=== PATIENT | female | born 1960 | race Caucasian/White ===

== ENCOUNTER 2016-06-22 21:28 | Emergency (ER) | payer OTHER ==
[2016-06-22 22:59] LABS: BASOPHIL % 0.3 % (0-2); PLATELET COUNT 274 x10^3mcL (130-400)
[2016-06-22 23:03] LABS: RED CELL DISTRIBUTION WIDTH 16.1 % (11.5-14.5)
[2016-06-22 23:13] LABS: CALCIUM 9.4 mg/dL (8.5-10.1); CARBON DIOXIDE 27.5 mmol/L (21-32); CHLORIDE SERUM 105 mmol/L (98-107); CREATININE SERUM 0.9 mg/dL (0.6-1.0); GFR1 > 60 mL/min; GLUCOSE SERUM 91 mg/dL (74-106); POTASSIUM SERUM 4.2 mmol/L (3.5-5.1); SODIUM SERUM 143 mmol/L (136-145)
[2016-06-22 23:17] LABS: ALBUMIN 3.4 g/dL (3.4-5.0); ALKALINE PHOSPHATASE 70 U/L (46-116); ALT/SGPT 20 U/L (14-59); AST/SGOT 14 U/L (15-37); BILIRUBIN TOTAL 0.4 mg/dL (0.20-1.00)
[2016-06-22 23:23] LABS: TOTAL PROTEIN, SERUM 8.4 g/dL (6.4-8.2)
[2016-06-23 01:09] VITALS: BP 124/81
== END 2016-06-23 01:09 | disposition home or self-care (01) ==
LOC: ED 21:28
PROVIDERS: Emergency Medicine
DX: R51 Headache (principal); H53.8 Other visual disturbances; G51.0 Bell's palsy; F20.9 Schizophrenia, unspecified; F99 Mental disorder, not otherwise specified; Z88.0 Allergy status to penicillin; Z79.899 Other long term (current) drug therapy

== ENCOUNTER 2016-08-05 18:45 | Inpatient (IN) | payer OTHER ==
[~2016-08-05] VITALS: Ht 157.5 cm; Wt 97.7 kg
[2016-08-05 20:08] LABS: BASOPHIL % 0.7 % (0-2); PLATELET COUNT 264 x10^3mcL (130-400)
[2016-08-05 20:09] LABS: RED CELL DISTRIBUTION WIDTH 15.9 % (11.5-14.5)
[2016-08-05 20:26] LABS: microscopic required? YES; urine erythrocyte TRACE (NEGATIVE)
[2016-08-05 20:31] LABS: CALCIUM 8.9 mg/dL (8.5-10.1); CARBON DIOXIDE 27.9 mmol/L (21-32); CHLORIDE SERUM 107 mmol/L (98-107); CREATININE SERUM 0.8 mg/dL (0.6-1.0); GFR1 > 60 mL/min; GLUCOSE SERUM 76 mg/dL (74-106); SODIUM SERUM 144 mmol/L (136-145)
[2016-08-05 20:43] LABS: ALKALINE PHOSPHATASE 68 U/L (46-116); ALT/SGPT 20 U/L (14-59); AMYLASE 78 U/L (25-115); AST/SGOT 16 U/L (15-37); BILIRUBIN TOTAL 0.14 mg/dL (0.20-1.00); HDL CHOLESTEROL 55 mg/dL (40-60); LIPASE 253 IU/L (73-393); TOTAL PROTEIN, SERUM 8.1 g/dL (6.4-8.2)
[2016-08-05 20:45] LABS: CHOLESTEROL 201 mg/dL (<200)
[2016-08-05 20:50] LABS: AMPHETAMINE QUAL UR NONE DETECTED (NEG <=1000)
[2016-08-05] MEDS ORDERED: DEPAKOTE500 MG PO (21:08)
[2016-08-05] MEDS ORDERED: ABILIFY5 M1 PO (21:09)
[2016-08-05] MEDS ORDERED: RISPERDAL0.5 MG PO (21:09)
[2016-08-05 22:18] VITALS: BP 121/59
[2016-08-05 22:25] VITALS: Ht 157.5 cm; Wt 97.7 kg
[2016-08-05] MEDS ORDERED: SPIRONOLACTONE50 MG PO (23:02)
[2016-08-05] MEDS ORDERED: FLUOXETINE HYDR20 M2 PO (23:02)
[2016-08-05 23:20] LABS: MAGNESIUM 1.9 mg/dL (1.8-2.4); PHOSPHOROUS 3.4 mg/dL (2.5-4.9)
[2016-08-05 23:25] LABS: CHOLESTEROL/HDL RATIO 3.7
[2016-08-05 23:29] LABS: FREE T4 0.88 ng/dL (0.76-1.46); T4(THYROXINE) 5.8 ug/dL (4.7-13.3)
[2016-08-06 00:21] LABS: T3 TOTAL 1.04 ng/mL
[2016-08-06 04:36] LABS: BASOPHIL % 0.6 % (0-2); PLATELET COUNT 209 x10^3mcL (130-400)
[2016-08-06 04:42] LABS: RED CELL DISTRIBUTION WIDTH 15.9 % (11.5-14.5)
[2016-08-06 04:50] LABS: CALCIUM 8.4 mg/dL (8.5-10.1); CARBON DIOXIDE 25.9 mmol/L (21-32); CHLORIDE SERUM 110 mmol/L (98-107); CREATININE SERUM 0.7 mg/dL (0.6-1.0); GFR1 > 60 mL/min; GLUCOSE SERUM 91 mg/dL (74-106); MAGNESIUM 1.8 mg/dL (1.8-2.4); PHOSPHOROUS 4.1 mg/dL (2.5-4.9); SODIUM SERUM 145 mmol/L (136-145)
[2016-08-06 05:52] VITALS: BP 112/50
[2016-08-06 10:35] VITALS: BP 112/52
[2016-08-06 13:36] VITALS: BP 104/49
[2016-08-06 17:13] VITALS: BP 115/48
[2016-08-06 21:58] VITALS: BP 112/57
[2016-08-07 05:53] VITALS: BP 121/57
[2016-08-07 05:58] LABS: BASOPHIL % 0.3 % (0-2); PLATELET COUNT 207 x10^3mcL (130-400)
[2016-08-07 06:12] LABS: CARBON DIOXIDE 31.1 mmol/L (21-32); CHLORIDE SERUM 110 mmol/L (98-107); CREATININE SERUM 0.7 mg/dL (0.6-1.0); GFR1 > 60 mL/min; GLUCOSE SERUM 103 mg/dL (74-106); MAGNESIUM 1.8 mg/dL (1.8-2.4); PHOSPHOROUS 4.1 mg/dL (2.5-4.9); POTASSIUM SERUM 4.5 mmol/L (3.5-5.1); SODIUM SERUM 146 mmol/L (136-145)
[2016-08-07 06:42] LABS: RED CELL DISTRIBUTION WIDTH 15.8 % (11.5-14.5)
[2016-08-07 09:55] VITALS: BP 100/46
[2016-08-07] MEDS ORDERED: LIPI20 PO (10:08)
[2016-08-07] MEDS ORDERED: ECO81 PO (10:09)
[2016-08-07] MEDS ORDERED: PRE20 PO (10:25)
[2016-08-07] MEDS ORDERED: MYCP TOP (10:27)
[2016-08-07] MEDS ORDERED: ARTIFICIAL TEAR15 M1 OU (10:30)
[2016-08-07 13:13] VITALS: BP 100/46
[2016-08-07 13:15] VITALS: BP 124/69
== END 2016-08-07 14:47 | DRG 205 ==
LOC: ED 18:45 → DU 21:05
PROVIDERS: Emergency Medicine; ADMIT Family Medicine
DX: M94.0 Chondrocostal junction syndrome [Tietze] (principal); N17.0 Acute kidney failure with tubular necrosis; E44.0 Moderate protein-calorie malnutrition; E87.0 Hyperosmolality and hypernatremia; F25.0 Schizoaffective disorder, bipolar type; R73.03 Prediabetes; E78.5 Hyperlipidemia, unspecified; E66.9 Obesity, unspecified; E02 Subclinical iodine-deficiency hypothyroidism; E83.51 Hypocalcemia; E87.8 Other disorders of electrolyte and fluid balance, not elsewhere classified; G51.0 Bell's palsy; Z68.39 Body mass index [BMI] 39.0-39.9, adult
CPT/HCPCS: 82962; 83880; 84439; A9579; J7030; J7512; Q0092; Q9967

== ENCOUNTER 2017-11-24 12:39 | Emergency (ER) | payer OTHER ==
[~2017-11-24] VITALS: Ht 157.5 cm; Wt 97.1 kg
[~2017-11-24 12:39] MED LIST: ABILIFY5 M1 PO; ARTIFICIAL TEAR15 M1 OU; DEPAKOTE500 MG PO; ECO81 PO; FLUOXETINE HYDR20 M2 PO; LIPI20 PO; MYCP TOP; PRE20 PO; RISPERDAL0.5 MG PO; SPIRONOLACTONE50 MG PO
[2017-11-24 12:54] VITALS: BP 123/84; Ht 157.5 cm; Wt 97.1 kg
== END 2017-11-24 13:34 | disposition home or self-care (01) ==
LOC: ED 12:39
DX: S50.02XA Contusion of left elbow, initial encounter (principal); F20.9 Schizophrenia, unspecified; F31.9 Bipolar disorder, unspecified; Z88.0 Allergy status to penicillin; W22.8XXA Striking against or struck by other objects, initial encounter; Y93.89 Activity, other specified; Y92.89 Other specified places as the place of occurrence of the external cause; Y99.8 Other external cause status